=== PATIENT | female | born 1930 | race Caucasian/White ===

== ENCOUNTER 2017-04-11 13:06 | Emergency (ER) | payer MEDICARE, OTHER ==
[~2017-04-11] VITALS: Ht 162.6 cm; Wt 63.0 kg
[~2017-04-11 13:06] MED LIST: ASPI81CH PO; LEVSOD137 PO; Norco 5-325 Ta1 EACH PO; THYROID
[2017-04-11] MEDS ORDERED: Norco 5-325 Ta1 EACH PO (14:13)
== END 2017-04-11 14:46 | disposition home or self-care (01) ==
LOC: ER 13:06
DX: S93.401A Sprain of unspecified ligament of right ankle, initial encounter (principal); G20 Parkinson's disease; Z79.899 Other long term (current) drug therapy; Z79.82 Long term (current) use of aspirin; Z87.891 Personal history of nicotine dependence; W06.XXXA Fall from bed, initial encounter
CPT/HCPCS: 73590; 73610; 99283

== ENCOUNTER 2018-07-24 11:52 | Emergency (ER) | payer MEDICARE, OTHER ==
[~2018-07-24] VITALS: Ht 162.6 cm; Wt 61.2 kg
[2018-07-24] MEDS ORDERED: RYTARY ER 23.71 EACH PO (12:06)
== END 2018-07-24 12:40 | disposition home or self-care (01) ==
LOC: ER 11:52
DX: S06.0X0A Concussion without loss of consciousness, initial encounter (principal); S01.01XA Laceration without foreign body of scalp, initial encounter; Z79.899 Other long term (current) drug therapy; Z79.82 Long term (current) use of aspirin; E03.9 Hypothyroidism, unspecified; Z87.891 Personal history of nicotine dependence; W18.30XA Fall on same level, unspecified, initial encounter
CPT/HCPCS: 12001; 99283-25

== ENCOUNTER → 2018-09-28 | Outpatient (CLI) | payer MEDICARE, OTHER ==
[~2018-09-28] MED LIST changes: +RYTARY ER 23.71 EACH PO
[2018-09-29 10:09] LABS: Candida species (DNA Probe) Negative (NEGATIVE); G. vaginalis (DNA Probe) Negative (NEGATIVE); T. vaginalis (DNA Probe) Negative (NEGATIVE)
[2018-09-30 15:06] LABS: HPV 16 Negative (Negative); HPV 18 Negative (Negative); HPV OTHER HR TYPES Negative (Negative)
== END | disposition home or self-care (01) ==
LOC: LAB 12:09 → LAB SHORT 12:09
PROVIDERS: Nurse Practitioner Obstetrics & Gynecology
DX: Z01.419 Encounter for gynecological examination (general) (routine) without abnormal findings (principal); N76.0 Acute vaginitis
CPT/HCPCS: 87480; 87510; 87624; 87660; G0123

== ENCOUNTER → 2018-11-09 | Outpatient (CLI) | payer MEDICARE, OTHER | END | disposition home or self-care (01) | LOC: LAB 18:07 → LAB SHORT 18:07 | DX: N39.0 Urinary tract infection, site not specified (principal); R30.0 Dysuria | CPT/HCPCS: 87077; 87086; 87186 ==

== ENCOUNTER → 2018-12-28 | Outpatient (CLI) | payer MEDICARE, OTHER | END | disposition home or self-care (01) | LOC: LAB SHORT 13:09 → LAB 13:09 | DX: N39.0 Urinary tract infection, site not specified (principal) | CPT/HCPCS: 87077; 87086; 87186 ==